=== PATIENT | male | born 1945 ===

== ENCOUNTER 2018-03-18 07:28 | Day surgery (SDC) | payer MEDICARE ==
[2018-03-18] MEDS ORDERED: Lidocaine 2% MPF (5 ml) Inj ONE (08:49)
[2018-03-18] MEDS ORDERED: Bupivacaine 0.25% 20 ML INJ IJ ONE (08:49)
[2018-03-18] MEDS ORDERED: ceFAZolin 1 gm FROZEN Premix 1 GM/50 ML ML IVPB ONE (09:22)
[2018-03-18] MEDS ORDERED: Propofol 10 mg/ml Inj (20 ML) ONE (09:26)
[2018-03-18] MEDS ORDERED: Midazolam 2 MG/2 ML VIAL ONE (09:26)
[2018-03-18] MEDS: Bacitracin Ointment 30 GM TUBE ONE ×2 (09:56→10:18)
[2018-03-18] MEDS ORDERED: HYDROmorphone 0.5 mg/0.5 ml ISec IVP PRN (10:28)
[2018-03-18 12:02] VITALS: RESP 20
[2018-03-18 12:37] VITALS: BP 117/76; PULSE 110; TEMP 97.7; O2SAT 97
--- NOTE | 2018-03-19 00:31 | OP ---
PROCEDURE DATE: 03/18/2018 PREOPERATIVE DIAGNOSES: Balanitis, phimosis due to diabetes mellitus. PROCEDURE: Circumcision. DESCRIPTION OF PROCEDURE: While the patient in the supine position and after starting anesthesia, genitalia were prepped and draped in a sterile fashion. The patient was given Rocephin 1 g. Circular incision was carried around the glans penis. The same was done around the mucosa around the glans, 0.5 cm from the edge. All the tissue dorsal slit made to open the severe phimosis. After that, all excessive skin and sclerotic skin were excised with extra mucosa. All the bleeders were clamped and coagulated. Suture applied at 12 o'clock and one suture applied at 6 o'clock. Again, deep suture applied at 3 and 9. A 3-0 chromic suture applied between the four corners, and there was no active bleeding. Xylocaine was injected prior to the excision of the excessive skin. Dressing applied using Vaseline with bacitracin ointment. The patient tolerated the procedure well and was transferred to the recovery room in stable condition. Jem Felix MD
== END 2018-03-18 12:40 | disposition home or self-care (01) ==
LOC: C.SDS 07:28
PROVIDERS: ATTEND Specialist
DX: N47.1 Phimosis (principal); N48.1 Balanitis; E11.69 Type 2 diabetes mellitus with other specified complication
CPT/HCPCS: 54161; 82948; 88304; J2250; J2704; J3010